=== PATIENT | male | born 1960 | race Caucasian/White ===

== ENCOUNTER 2020-07-27 15:54 | Emergency (ER) | payer BC ==
[2020-07-27] MEDS: GI Cocktail Oral Solution 30 ML PO ONE (16:51)
--- NOTE | 2020-07-27 17:01 | EDM.PDOC ---
ED HPI GENERAL MEDICAL PROBLEM - General Chief Complaint: Cardiovascular Problem Stated Complaint: CHEST PRESSURE Time Seen by Provider: 07/27/20 16:40 Source of Information: Reports: Patient History Limitations: Reports: No Limitations - History of Present Illness INITIAL COMMENTS - FREE TEXT/NARRATIVE: 59 year old male with PMH of HTN, and PE presents with epigastric pain with radiation into sternal area intermittently for the past 3 days. He feels the pain start shortly after eating. He had some nausea yesterday but none today. Denies any diaphoresis, n/v/d, fever, cough, ESTRADA, weakness. Also patient has some contact dermatitis bilateral LE, he is using some creams at home without relief. The pain does not radiate into shoulder or back. Location: Reports: Chest, Abdomen Middle Abdominal Pain Score (Numeric/FACES): 6 - Related Data Allergies Allergy/AdvReac Type Severity Reaction Status Date / Time losartan Allergy Nausea and Verified 07/27/20 17:46 Vomiting rivaroxaban [From Xarelto] Allergy Rash Verified 07/27/20 16:51 Home Meds: Home Meds Aspirin [Halfprin] 81 mg PO DAILY 07/27/20 [History] Loratadine 10 mg PO DAILY 07/27/20 [History] Metoprolol Succinate [Toprol Xl] 50 mg PO DAILY 07/27/20 [History] lisinopriL [Lisinopril] 5 mg PO DAILY 07/27/20 [History] Social & Family History - Tobacco Use Tobacco Use Status *Q: Never Tobacco User - Recreational Drug Use Recreational Drug Use: No ED ROS GENERAL - Review of Systems Review Of Systems: See Below Constitutional: Reports: No Symptoms HEENT: Reports: No Symptoms Respiratory: Reports: Shortness of Breath Cardiovascular: Reports: Chest Pain GI/Abdominal: Reports: Abdominal Pain : Reports: No Symptoms Musculoskeletal: Reports: No Symptoms Skin: Reports: Rash Neurological: Reports: No Symptoms Psychiatric: Reports: No Symptoms Hematologic/Lymphatic: Reports: No Symptoms Immunologic: Reports: No Symptoms ED EXAM, GENERAL - Physical Exam Exam: See Below Exam Limited By: No Limitations General Appearance: Alert, No Apparent Distress Eye Exam: Bilateral Eye: Normal Inspection, PERRL Ears: Normal External Exam, Normal Canal, Hearing Grossly Normal, Normal TMs Ear Exam: Bilateral Ear: Auricle Normal, Canal Normal, TM normal Nose: Normal Inspection, Normal Mucosa, No Blood Throat/Mouth: Normal Inspection, Normal Lips, Normal Teeth, Normal Gums, Normal Oropharynx, Normal Voice, No Airway Compromise Head: Atraumatic Neck: Normal Inspection, Non-Tender, Full Range of Motion Respiratory/Chest: No Respiratory Distress, Lungs Clear, Normal Breath Sounds, No Accessory Muscle Use, Other (patient states he has dyspnea on exertion) Cardiovascular: Normal Peripheral Pulses, Regular Rate, Rhythm, No Edema, No JVD, No Murmur Peripheral Pulses: 3+: Radial (L), Radial (R), Dorsalis Pedis (L), Dorsalis Pedis (R) GI/Abdominal: Normal Bowel Sounds, Soft, Tender Back Exam: Normal Inspection, Full Range of Motion Extremities: Normal Inspection, Normal Range of Motion, Non-Tender, No Pedal Edema, Normal Capillary Refill Neurological: Alert, Oriented, Normal Cognition, Normal Gait, No Motor/Sensory Deficits Psychiatric: Normal Affect, Normal Mood Skin Exam: Warm, Dry, Intact, Normal Color Lymphatic: No Adenopathy Course - Vital Signs Last Recorded V/S: Last Vital Signs Temp 98.1 F 07/27/20 16:20 Pulse 68 07/27/20 18:01 Resp 16 07/27/20 18:01 BP 128/70 07/27/20 18:01 Pulse Ox 95 07/27/20 18:01 - Orders/Labs/Meds Orders: Active Orders 24 hr Category Date Time Status Cardiac Monitoring [RC] .As Directed Care 07/27/20 16:59 Active EKG Documentation Completion [RC] ASDIRECTED Care 07/27/20 16:32 Active Abdomen Pelvis w Cont [CT] Stat Exams 07/27/20 16:48 Taken Chest w Cont [CT] Stat Exams 07/27/20 17:15 Taken H PYLORI, IGM, IGG, IGA AB Stat Lab 07/27/20 16:30 Received Iopamidol [Isovue-370 (76%)] Med 07/27/20 17:15 Active 100 ml IV . DIRECTED Triamcinolone Acetonide [Triamcinolone Acetonide 0.5%] Med 07/27/20 17:15 Active 15 gm TOP BID Medication Orders Iopamidol (Iopamidol 755 Mg/Ml 100 Ml Bottle) 100 ml IV . [facility] Triamcinolone Acetonide (Triamcinolone Acetonide 0.5% Crm 15 Gm Tube) 15 gm TOP BID MARCIANO Last Admin: 07/27/20 17:36 Dose: 1 applic Documented by: VINNIE Labs: Laboratory Tests 07/27/20 07/27/20 07/27/20 Range/Units 16:30 16:30 16:30 WBC 8.1 (4.0-11.0) K/uL RBC 4.92 (4.50-6.50) M/uL Hgb 14.9 (13.0-18.0) g/dL Hct 43.5 (40.0-54.0) % MCV 88 (76-96) fL MCH 30.3 (27.0-32.0) pg MCHC 34.3 (31.0-35.0) g/dL RDW 13.4 (11.0-16.0) % Plt Count 328 (150-400) K/uL MPV 9.8 (6.0-10.0) fL Neut % (Auto) 69.1 (45.0-70.0) % Lymph % (Auto) 20.1 (20.0-40.0) % [place] % (Auto) 9.1 (3.0-10.0) % Eos % (Auto) 1.5 (1.0-5.0) % Baso % (Auto) 0.2 (0.0-0.5) % Neut # (Auto) 5.56 (2.00-7.50) K/uL Lymph # (Auto) 1.62 (1.50-4.00) K/uL [place] # (Auto) 0.73 (0.20-0.80) K/uL Eos # (Auto) 0.12 (0.04-0.40) K/uL Baso # (Auto) 0.02 (0.02-0.10) K/uL D-Dimer, Quantitative 304 (0-400) ng/mL Sodium 141 (136-145) mmol/L Potassium 4.0 (3.5-5.1) mmol/L Chloride 105 (98-107) mmol/L Carbon Dioxide 25.6 (21.0-32.0) mmol/L Anion Gap 14.4 (5.0-15.0) mmol/L BUN 15 (8-26) mg/dL Creatinine 1.20 (0.70-1.30) mg/dL Est Cr Clr Drug Dosing 68.85 mL/min Estimated GFR (MDRD) > 60 (>60) MLS/MIN BUN/Creatinine Ratio 12.5 (6-25) Glucose 106 H (74-100) mg/dL Calcium 9.0 (8.5-10.1) mg/dL Total Bilirubin 0.9 (0.0-1.0) mg/dL AST 19 (15-37) U/L ALT 27 (12-78) U/L Alkaline Phosphatase 70 (46-116) U/L Troponin I < 0.017 (0.000-0.060) ng/mL Total Protein 7.4 (6.4-8.2) g/dL Albumin 4.3 (3.4-5.0) g/dL Globulin 3.1 (2.2-4.2) g/dL Albumin/Globulin Ratio 1.4 (0.8-2.0) Lipase (73-393) U/L 07/27/20 Range/Units 16:30 WBC (4.0-11.0) K/uL RBC (4.50-6.50) M/uL Hgb (13.0-18.0) g/dL Hct (40.0-54.0) % MCV (76-96) fL MCH (27.0-32.0) pg MCHC (31.0-35.0) g/dL RDW (11.0-16.0) % Plt Count (150-400) K/uL MPV (6.0-10.0) fL Neut % (Auto) (45.0-70.0) % Lymph % (Auto) (20.0-40.0) % [place] % (Auto) (3.0-10.0) % Eos % (Auto) (1.0-5.0) % Baso % (Auto) (0.0-0.5) % Neut # (Auto) (2.00-7.50) K/uL Lymph # (Auto) (1.50-4.00) K/uL [place] # (Auto) (0.20-0.80) K/uL Eos # (Auto) (0.04-0.40) K/uL Baso # (Auto) (0.02-0.10) K/uL D-Dimer, Quantitative (0-400) ng/mL Sodium (136-145) mmol/L Potassium (3.5-5.1) mmol/L Chloride (98-107) mmol/L Carbon Dioxide (21.0-32.0) mmol/L Anion Gap (5.0-15.0) mmol/L BUN (8-26) mg/dL Creatinine (0.70-1.30) mg/dL Est Cr Clr Drug Dosing mL/min Estimated GFR (MDRD) (>60) MLS/MIN BUN/Creatinine Ratio (6-25) Glucose (74-100) mg/dL Calcium (8.5-10.1) mg/dL Total Bilirubin (0.0-1.0) mg/dL AST (15-37) U/L ALT (12-78) U/L Alkaline Phosphatase (46-116) U/L Troponin I (0.000-0.060) ng/mL Total Protein (6.4-8.2) g/dL Albumin (3.4-5.0) g/dL Globulin (2.2-4.2) g/dL Albumin/Globulin Ratio (0.8-2.0) Lipase 73 (73-393) U/L Meds: Medications Generic Name Dose Route Start Last Admin Trade Name Freq PRN Reason Stop Dose Admin Iopamidol 100 ml 07/27/20 17:15 Iopamidol 755 Mg/Ml 100 Ml Bottle IV . [facility] Triamcinolone Acetonide 15 gm 07/27/20 17:15 07/27/20 17:36 Triamcinolone Acetonide 0.5% Crm 15 Gm Tube TOP 1 applic BID MARCIANO Administration Discontinued Medications Generic Name Dose Route Start Last Admin Trade Name Freq PRN Reason Stop Dose Admin Al Hydroxide/Mg Hydroxide 30 ml 07/27/20 17:00 07/27/20 16:51 Gi Cocktail Oral Solution 30 Ml PO 07/27/20 17:01 30 ml ONETIME ONE Administration Sodium Chloride 50 ml 07/27/20 17:06 Sodium Chloride 0.9% 50 Ml Sdv FLUSH 07/27/20 17:07 ONETIME ONE Departure - Departure Time of Disposition: 18:42 Disposition: Home, Self-Care 01 Clinical Impression: GERD (gastroesophageal reflux disease) Qualifiers: Esophagitis presence: esophagitis presence not specified Qualified Code(s): K21.9 - Gastro-esophageal reflux disease without esophagitis Constipation Qualifiers: Constipation type: unspecified constipation type Qualified Code(s): K59.00 - Constipation, unspecified Instructions: Constipation, Adult, Gastroesophageal Reflux Disease, Adult, [id number] Referrals: PCP,None [Primary Care Provider] - Forms: ED Department Discharge Additional Instructions: Start taking the omeprazole tonight. Miralax for constipation. Increase fluids and fibers to help with constipation. Call the hospital for your hpylori results. Return to ED for any increased or new concerning symptoms. Follow up with your PMD about the incidental findings we discussed from your CT scan. Sepsis Event Note (ED) - Evaluation Sepsis Screening Result: No Definite Risk - Focused Exam Vital Signs: Vital Signs Temp Pulse Resp BP Pulse Ox 07/27/20 18:01 68 16 128/70 95 07/27/20 17:35 76 16 144/76 H 93 L 07/27/20 17:05 63 16 133/72 96 07/27/20 16:20 98.1 F 75 16 146/90 H 95 - My Orders Last 24 Hours: My Active Orders 07/27/20 16:30 H PYLORI, IGM, IGG, IGA AB Stat 07/27/20 16:32 EKG Documentation Completion [RC] ASDIRECTED 07/27/20 16:48 Abdomen Pelvis w Cont [CT] Stat 07/27/20 16:59 Cardiac Monitoring [RC] .As Directed 07/27/20 17:15 Chest w Cont [CT] Stat Iopamidol [Isovue-370 (76%)] 100 ml IV . DIRECTED Triamcinolone Acetonide [Triamcinolone Acetonide 0.5%] 15 gm TOP BID - Assessment/Plan Last 24 Hours: My Active Orders 07/27/20 16:30 H PYLORI, IGM, IGG, IGA AB Stat 07/27/20 16:32 EKG Documentation Completion [RC] ASDIRECTED 07/27/20 16:48 Abdomen Pelvis w Cont [CT] Stat 07/27/20 16:59 Cardiac Monitoring [RC] .As Directed 07/27/20 17:15 Chest w Cont [CT] Stat Iopamidol [Isovue-370 (76%)] 100 ml IV . DIRECTED Triamcinolone Acetonide [Triamcinolone Acetonide 0.5%] 15 gm TOP BID Plan: PERC patient scores 3, ddimer negative, will scan for PE Discussed incidental findings of nodules in right middle lung lobe and possible nodules on thyroid. Patient is agreeable to follow up with PMD. Patient verbalized understanding of DC, and all questions were answered prior to DC. DDX: ID, PE, SBO, gastritis. EKG normal, troponin negative PE, SBO CT negative
[2020-07-27] MEDS ORDERED: Sodium Chloride 0.9% 50 ML SDV FLUSH ONE (17:06)
[2020-07-27] MEDS ORDERED: Iopamidol 755 Mg/ML 100 ML Bottle IV SCH (17:15)
[2020-07-27] MEDS: Triamcinolone Acetonide 0.5% Crm 15 GM Tube TOP SCH (17:36)
--- NOTE | 2020-07-27 17:59 | CR ---
DATE OF SERVICE: 07/27/2020 CLINICAL DATA: Chest pain AP portable chest: The patient is in an apical lordotic position. No priors. The heart size is normal. The lungs are clear. No pneumothorax. No pleural effusions. No evidence of acute intrathoracic disease. Thank you for allowing us to participate in the care of your patient MTDD
[2020-07-27] MEDS ORDERED: Triamcinolone Acetonide 0.5% Crm 15 GM Tube ONE (18:00)
[2020-07-27] MEDS ORDERED: Polyethylene Glycol 3350 Powder 17 GM Packet ONE (18:00)
[2020-07-27] MEDS ORDERED: Omeprazole 20 MG Cap.CR ONE (18:00)
--- NOTE | 2020-07-28 09:39 | CT ---
DATE OF SERVICE: 07/27/20 CLINICAL DATA: sob, epigastric pain, PMH PE ENHANCED CHEST CT: Multislice acquisition through the chest with IV contrast was performed. No priors. No evidence of PE. No pneumothorax. No pleural effusions. No aortic aneurysm or dissection. The heart size is normal. There are moderate coronary artery calcifications. No pericardial effusion. There are atelectatic changes in the dependent portion of both lungs. There is a linear density in the lingula of the left upper lobe consistent with linear atelectasis or fibrosis. There is a 3 mm pleural-based nodule in the right middle lobe. The lungs are otherwise clear. No hilar or mediastinal adenopathy. There is gas noted in the thoracic esophagus, most likely related to GE reflux. There is degenerative disc disease throughout the thoracic spine. IMPRESSION: 1. Negative for PE. No acute abnormalities. 2. A 3 mm pleural-based nodule right middle lobe. If the patient is high risk, consider 12 month followup. [id number] [facility]
--- NOTE | 2020-07-28 09:45 | CT ---
DATE OF SERVICE: 07/27/20 CLINICAL DATA: epigastric/chest pain ENHANCED ABDOMEN AND PELVIC CT: No priors. There is mild diffuse fatty infiltration of the liver. No focal hepatic lesions. The gallbladder appears normal. No biliary duct dilatation. The spleen appears normal. The pancreas appears normal. The right and left adrenals appear normal. The right and left kidneys enhance symmetrically. There are multiple benign- appearing cysts on the right. No hydronephrosis or hydroureter. The bladder is partially fluid-filled. It appears normal. The prostate is mildly enlarged. There are calcifications within the prostate consistent with chronic prostatitis. The appendix is not dilated. No evidence of appendicitis. No free air. No free fluid. No dilated loops of bowel. No adenopathy. No aortic aneurysm. There is degenerative disc disease throughout the lumbar spine. [id number] [facility]
== END 2020-07-27 18:53 | disposition home or self-care (01) ==
LOC: LB.ED 15:54
DX: K21.9 Gastro-esophageal reflux disease without esophagitis (principal); K59.00 Constipation, unspecified; Z88.8 Allergy status to other drugs, medicaments and biological substances; Z79.82 Long term (current) use of aspirin
CPT/HCPCS: 36415; 71045; 71260; 74177; 80053; 83690; 84484; 85025; 85379; 86677; 93005; 99283; 99285-25; A9270-GY